=== PATIENT | female | born 1965 | race Caucasian/White ===

== ENCOUNTER 2016-06-25 14:39 | Emergency (ER) | payer OTHER ==
[~2016-06-25] VITALS: Wt 69.0 kg
[~2016-06-25 14:39] MED LIST: CEPH-443 PO; DOCU-144 PO; HYDR-902 PO; HYDR30CR75 PR; IBUP-1542 PO; LEVO100T87 PO; OMEP20CA16 PO; POLY17PO6 PO
--- NOTE | 2016-06-25 15:51 | ERD ---
ER Documentation Chief Complaint Date/Time DATE: 06/25/16 TIME: 15:47 Chief Complaint DYSURIA SINCE LAST NIGHT AND FREQUENCY. NO HEMATURIA HPI This is a 51-year-old female who presents to the emergency department today complaining of frequent urination and burning with urination for the last 2 days. Patient that she feels like she has some pressure and she also had some itching in her vagina. States that she saw her doctor a week ago and was told that she'll need wait for weeks for ultrasound. Denies any vaginal bleeding. Denies any fevers or chills. ROS All systems reviewed and are negative except as per history of present illness. Medications Home Meds Active Scripts Clotrimazole* (Clotrimazole* AF) 1% - 30 Gm Cream.gm., 1 APPLIC TOP BID for 7 Days, #1 TUB Prov:CYDNEY HAAS PA-C 06/25/16 Phenazopyridine Hcl* (Pyridium*) 200 Mg Tab, 200 MG PO TID Y for URINARY PAIN, # 6 TAB Prov:CYDNEY HAAS PA-C 06/25/16 Docusate Sodium* (Colace*) 100 Mg Capsule, 100 MG PO TID, #30 CAP Prov:LIANG PADILLA 02/26/16 Polyethylene Glycol* (Miralax*) 17 Gm Powd.pack, 17 GM PO DAILY, #10 Prov:MILES BENITEZ DO 02/24/16 Hydrocortisone Acetate* (Anusol-HC*) 30 Gm Cream.gm., 1 APPLIC MS TID, #1 TUB Prov:LIANG PADILLA 02/23/16 Ibuprofen* (Motrin*) 600 Mg Tab, 600 MG PO Q6H Y for PAIN AND OR ELEVATED TEMP, #20 TAB Prov:LIANG PADILLA 02/23/16 Cephalexin* (Keflex*) 500 Mg Capsule, 500 MG PO QID for 10 Days, CAP Prov:LIANG PADILLA 02/23/16 Reported Medications Hydrocodone/Acetaminophen ([place] 10-325 Tablet) 1 Each Tablet, 1 EACH PO Q4 Y for PAIN, TAB 02/23/16 Levothyroxine Sodium* (Levothyroxine Sodium*) 100 Mcg Tablet, 100 MCG PO BEFORE BREAKFAST, #30 TAB 05/27/15 Omeprazole* (Omeprazole*) 20 Mg Capsule.dr, 20 MG PO DAILY, CAP 08/07/14 Allergies Allergies: Coded Allergies: No Known Allergy (Unverified , 02/24/16) PMhx/Soc History of Surgery: Yes (HEMORRHOIDECTOMY) Anesthesia Reaction: No Hx Neurological Disorder: No Hx Respiratory Disorders: No Hx Cardiac Disorders: No Hx Psychiatric Problems: No Hx Miscellaneous Medical Probl: No Hx Alcohol Use: No Hx Substance Use: No Hx Tobacco Use: No Physical Exam Vitals Vital Signs Date Time Temp Pulse Resp B/P Pulse Ox O2 Delivery O2 Flow Rate FiO2 06/25/16 14:44 99.2 84 20 139/67 99 Physical Exam Const: No acute distress Head: Atraumatic Eyes: Normal Conjunctiva ENT: Normal External Ears, Nose and Mouth. Neck: Full range of motion..~ No meningismus. Resp: Clear to auscultation bilaterally Cardio: Regular rate and rhythm, no murmurs Abd: Soft, suprapubic tenderness non distended. Normal bowel sounds. No right lower quadrant pain. No left lower quadrant pain. Skin: No petechiae or rashes Back: No midline or flank tenderness Neur: Awake and alert Psych: Normal Mood and Affect Results 24 hrs Laboratory Tests Test 06/25/16 16:08 06/25/16 16:58 Bedside Urine Blood Trace-intact Bedside Urine Glucose (UA) Negative Bedside Urine Ketones (LAB) Negative Bedside Urine Leukocyte Esterase (L Negative Bedside Urine Nitrite (LAB) Negative Bedside Urine Protein (LAB) Negative Bedside Urine pH (LAB) 6.0 Bedside Glucose 97mg/dL Procedures/MDM 31-year-old female who presents to the emergency department a complaint of frequent urination, dysuria and suprapubic pressure for the past 2 days. I obtained a UA UA is negative for infection. The patient complained of frequency of urination I did obtain an Accu-Chek. Accu -Chek showed 97. There is no evidence of diabetes at this time Patient's symptoms at this time consistent with dysuria. Patient was given Pyridium for the dysuria She was also complaining of vaginal itching and therefore I did do an external vaginal exam showed some mild yeast on the labia minora I will give her a prescription for Chlortrimazole cream. Patient had right lower quadrant pain in the left lower quadrant pain on physical exam she denied vaginal bleeding I do not feel the patient requires laboratory workup or imaging at this time. Low suspicion for acute surgical abdomen, ovarian torsion, tubo-ovarian abscess. She is afebrile and otherwise well-appearing. She has no flank pain. Low suspicion for pyelonephritis or nephrolithiasis. I'll give the patient a list of [employer] referral to follow up as she may have bladder prolapse at this time. Extremities to the patient. At this time the patient is stable for discharge and outpatient management. Patient should follow up with their PCP in the next 1-2 days. They may return to the emergency department sooner for any persistent or worsening of symptoms. Patient understood and agreed with the plan. Departure Diagnosis: Primary Impression: Dysuria Additional Impression: Yeast infection Condition: Fair CYDNEY HAAS PA-C Jun 25, 2016 15:51
[2016-06-25 16:06] LABS: URINE BLOOD (Dip) POC Trace-intact (NEGATIVE)
[2016-06-25] MEDS ORDERED: PHEN-538 PO (17:44)
[2016-06-25] MEDS ORDERED: CLOT30CR24 TOP (17:45)
[2016-06-25 17:55] VITALS: BP 128/65; PULSE 54; RESP 18; TEMP 98.4
== END 2016-06-25 17:56 | disposition home or self-care (01) ==
LOC: FTE 14:39
DX: R30.0 Dysuria (principal); B37.3 Candidiasis of vulva and vagina
CPT/HCPCS: 81003; 82962; 99283

== ENCOUNTER 2016-07-21 14:30 | Emergency (ER) | payer OTHER ==
[~2016-07-21] VITALS: Ht 160 cm; Wt 89.0 kg
[~2016-07-21 14:30] MED LIST changes: +CLOT30CR24 TOP; +PHEN-538 PO
[2016-07-21 14:35] VITALS: Ht 160 cm; Wt 89.0 kg
[2016-07-21] MEDS ORDERED: IBUP800T25 PO (19:33)
[2016-07-21] MEDS ORDERED: morphine 4 MG/ML VIAL IV STA (19:54)
[2016-07-21 20:14] LABS: ADD SCAN DIFF NO
[2016-07-21 20:18] LABS: BASOPHIL # 0.1 10^3/ul (0.0-0.1); BASOPHILS % 0.7 % (0.0-2.0); EOSINOPHILS # 0.2 10^3/ul (0.0-0.5); EOSINOPHILS % 3.2 % (0.0-7.0); HEMATOCRIT 42.1 % (37.0-47.0); HEMOGLOBIN 13.9 g/dl (12.0-16.0); LYMPHOCYTES # 3.3 10^3/ul (0.8-2.9); MEAN CORPUSCULAR HEMOGLOBIN 30.8 pg (29.0-33.0); MEAN CORPUSCULAR VOLUME 93.3 fl (82.0-101.0); MEAN PLATELET VOLUME 9.3 fl (7.4-10.4); MONOCYTE # 0.6 10^3/ul (0.3-0.9); MONOCYTES % 9.2 % (0.0-11.0); NEUTROPHIL # 2.6 10^3/ul (1.6-7.5); NEUTROPHILS % 38.6 % (39.0-77.0); PLATELET COUNT 373 10^3/UL (140-415); RED BLOOD COUNT 4.51 10^6/ul (4.20-5.40); RED CELL DISTRIBUTION WIDTH 12.5 % (11.5-14.5); WHITE BLOOD COUNT 6.8 10^3/ul (4.8-10.8)
[2016-07-21 20:22] LABS: ADD UMIC YES; URINE BILIRUBIN (Dip) NEGATIVE (NEGATIVE); URINE BLOOD (Dip) TRACE (NEGATIVE); URINE COLOR LT. YELLOW (YELLOW); URINE GLUCOSE (Dip) NEGATIVE (NEGATIVE); URINE KETONES (Dip) NEGATIVE (NEGATIVE); URINE LEUKOCYTE ESTERASE (Dip) 2+ (NEGATIVE); URINE NITRITE (Dip) NEGATIVE (NEGATIVE); URINE TOTAL PROTEIN (Dip) NEGATIVE (NEGATIVE); URINE UROBILINOGEN (Dip) 0.2 E.U./dL (0.1-1.0)
[2016-07-21] MEDS ORDERED: SOD CHLORIDE 0.9% 100 ML ONE (20:29)
[2016-07-21] MEDS ORDERED: IOHEXOL 300MG/ML 150 ML BTL ONE (20:29)
[2016-07-21 20:35] LABS: ALBUMIN 4.9 g/dl (3.3-4.9); POTASSIUM 3.8 mmol/L (3.5-5.1)
[2016-07-21 20:38] LABS: ALBUMIN/GLOBULIN RATIO 1.4; BILIRUBIN,INDIRECT 0.1 mg/dl (0-1.1); BILIRUBIN,TOTAL 0.1 mg/dl (0.2-1.3); CALCIUM 9.8 mg/dl (8.4-10.2); CREATININE 0.62 mg/dl (0.44-1.00); TOTAL PROTEIN 8.4 g/dl (6.1-8.1)
[2016-07-21 20:42] LABS: URINE RBCS 0-2 /HPF (0)
[2016-07-21 20:43] LABS: BACTERIA,URINE FEW; SQUAMOUS EPITHELIAL CELL,UR FEW
--- NOTE | 2016-07-21 22:39 | RADRPT ---
PROCEDURE: CT ABDOMEN/PELVIS WITH CONTRAST CLINICAL INDICATION: 51-year-old female with right lower quadrant pain. TECHNIQUE: The study was performed utilizing a GE [id number] VCT 64-slice CT scanner. Direct axia l sections were obtained through the abdomen and pelvis with the use of 90 cc of opaque 300 nonionic intravenous contrast material. Sagittal and coronal reformations were obtained. Automated exposure control and iterative reconstruction techniques were utilized for this examination. The images were reviewed on a PACS workstation. CTD/vol = 7.2 mGy; Total Exam DLP = 422 point a mGy-cm. COMPARISON: CT abdomen/pelvis November 06, 2015. FINDINGS: There is minimal bibasilar subsegmental atelectasis. There is no evidence for significant pleural e ffusion. The liver has a normal size and contour without focal areas of abnormal density or contras t enhancement. There is minimal intrahepatic ductal dilatation. Surgical clips are seen within the g allbladder fossa. There is a persistent cystic focus within the gallbladder fossa measuring approxi mately 3.5 x 2.9 x 2.5 cm as previously visualized without interval change. The distal common bile d uct measures approximately 6.8 mm. The pancreas is without areas of abnormal attenuation or contrast enhancement. This spleen is identified and has a normal size without abnormal density or contrast enhancement. The adrenal glands are unremarkable. The kidneys are functional bilaterally without abn ormal density. No hydroureteronephrosis nor nephroureterolithiasis is evident. The urinary bladder c ontains urine. There is mild retained stool within the ascending colon without obstruction. The appendix is again not visualized however there is no periappendiceal inflammatory changes. Multiple diverticula seen within the sigmoid colon region without surrounding inflammatory changes. The erika macario is not visualized consistent with prior hysterectomy. There is no significant free fluid. The a ortoiliac vessels are without aneurysmal dilatation. The osseous structures are intact. IMPRESSION: 1. Evidence for prior gallbladder surgery with persistent cystic focus within the gallbladder fossa without significant interval change with minimal intrahepatic and mild common bile duct dilatation. This may represent a retained gallbladder, choledochal cyst, dilated cystic duct remnant, postope rative seroma/biloma. Clinical correlation is necessary. 2. Sigmoid diverticulosis. 3. Mild retained stool within the ascending colon without obstruction. 4. Probable prior appendectomy. 5. Status post hysterectomy. .Chad Perry MD, MD Date Time Electronically viewed and signed by .Chad Perry MD, MD on 07/21/2016 22:39 .Kiley/
[2016-07-21] MEDS ORDERED: MAGN400O4 PO (22:50)
[2016-07-21] MEDS ORDERED: POLY17PO6 PO (22:50)
[2016-07-21] MEDS ORDERED: ONDANSETRON (ODT) 4 MG TAB ODT STA (22:55)
[2016-07-21 23:02] VITALS: BP 124/72; PULSE 68; RESP 17; TEMP 98.3
--- NOTE | 2016-07-21 23:05 | ERD ---
ER Documentation Chief Complaint Date/Time DATE: 07/21/16 TIME: 23:00 Chief Complaint ap x 1 week HPI 51-year-old female with a history of hysterectomy and left oophorectomy presenting with progressively worsening abdominal pain for 1 week. The pain is in the right lower quadrant. It was initially intermittent but for the past 3 days it has been constant. She describes it as an aching pain, radiating across her lower abdomen. She denies any associated fever, nausea, vomiting, diarrhea, dysuria, hematuria or constipation. No hematochezia or melena. She saw her primary care physician a few days ago and had a pelvic exam which was normal, a pelvic ultrasound which was normal, and urinalysis and blood work which were normal. ROS All systems reviewed and are negative except as per history of present illness. Medications Home Meds Active Scripts Polyethylene Glycol* (Miralax*) 17 Gm Powd.pack, 17 GM PO DAILY, #30 PACKET Prov:DAVID JAY MD 07/21/16 Magnesium Hydroxide* (Milk Of Magnesia*) 400 Mg/5 Ml Oral.susp, 30 ML PO Q12H for CONSTIPATION for 3 Days, #120 ML Prov:DAVID JAY MD 07/21/16 Reported Medications Ibuprofen* (Ibuprofen*) 800 Mg Tablet, 800 MG PO DAILY Y for PAIN, TAB 07/21/16 Discontinued Reported Medications Hydrocodone/Acetaminophen ([place] 10-325 Tablet) 1 Each Tablet, 1 EACH PO Q4 Y for PAIN, TAB 02/23/16 Levothyroxine Sodium* (Levothyroxine Sodium*) 100 Mcg Tablet, 100 MCG PO BEFORE BREAKFAST, #30 TAB 05/27/15 Omeprazole* (Omeprazole*) 20 Mg Capsule.dr, 20 MG PO DAILY, CAP 08/07/14 Discontinued Scripts Clotrimazole* (Clotrimazole* AF) 1% - 30 Gm Cream.gm., 1 APPLIC TOP BID for 7 Days, #1 TUB Prov:CYDNEY HAAS PA-C 06/25/16 Phenazopyridine Hcl* (Pyridium*) 200 Mg Tab, 200 MG PO TID Y for URINARY PAIN, # 6 TAB Prov:CYDNEY HAAS PA-C 06/25/16 Docusate Sodium* (Colace*) 100 Mg Capsule, 100 MG PO TID, #30 CAP Prov:LIANG PADILLA 02/26/16 Polyethylene Glycol* (Miralax*) 17 Gm Powd.pack, 17 GM PO DAILY, #10 Prov:MILES BENITEZ DO 02/24/16 Hydrocortisone Acetate* (Anusol-HC*) 30 Gm Cream.gm., 1 APPLIC VA TID, #1 TUB Prov:LIANG PADILLA 02/23/16 Ibuprofen* (Motrin*) 600 Mg Tab, 600 MG PO Q6H Y for PAIN AND OR ELEVATED TEMP, #20 TAB Prov:LIANG PADILLA 02/23/16 Cephalexin* (Keflex*) 500 Mg Capsule, 500 MG PO QID for 10 Days, CAP Prov:LIANG PADILLA 02/23/16 Allergies Allergies: Coded Allergies: No Known Allergy (Unverified , 07/21/16) PMhx/Soc History of Surgery: Yes (HEMORRHOIDECTOMY, hysterectomy.) Anesthesia Reaction: No Hx Neurological Disorder: No Hx Respiratory Disorders: No Hx Cardiac Disorders: No Hx Psychiatric Problems: No Hx Miscellaneous Medical Probl: No Hx Alcohol Use: No Hx Substance Use: No Hx Tobacco Use: No Smoking Status: Never smoker FmHx Family History: No diabetes Physical Exam Vitals Vital Signs Date Time Temp Pulse Resp B/P Pulse Ox O2 Delivery O2 Flow Rate FiO2 07/21/16 22:12 98.3 66 17 136/68 99 07/21/16 20:13 98.3 76 17 128/72 99 07/21/16 14:35 98.1 62 19 132/62 99 Physical Exam Const: No distress, well-appearing, nontoxic Head: Atraumatic Eyes: Normal Conjunctiva ENT: Normal External Ears, Nose and Mouth. Neck: Full range of motion. No meningismus. Resp: Clear to auscultation bilaterally Cardio: Regular rate and rhythm, no murmurs Abd: Soft, mild right lower quadrant tenderness to deep palpation, no rebound or guarding, no masses, non distended. Normal bowel sounds Skin: No petechiae or rashes Back: No midline or flank tenderness Ext: No cyanosis, or edema Neur: Awake and alert Psych: Normal Mood and Affect Result Diagram: 07/21/16200107/21/162001 Results 24 hrs Laboratory Tests Test 07/21/16 20:02 Alanine Aminotransferase (ALT/SGPT) 34IU/L Albumin 4.9g/dl Albumin/Globulin Ratio 1.40 Alkaline Phosphatase 96IU/L Anion Gap 19 Aspartate Amino Transf (AST/SGOT) 20IU/L Basophils # 0.110^3/ul Basophils % 0.7% Blood Urea Nitrogen 14mg/dl Calcium Level 9.8mg/dl Carbon Dioxide Level 29mmol/L Chloride Level 100mmol/L Creatinine 0.62mg/dl Direct Bilirubin 0.00mg/dl Eosinophils # 0.210^3/ul Eosinophils % 3.2% Globulin 3.50g/dl Glucose Level 92mg/dl Hematocrit 42.1% Hemoglobin 13.9g/dl Indirect Bilirubin 0.1mg/dl Lymphocytes # 3.310^3/ul Lymphocytes % 48.0% Mean Corpuscular Hemoglobin 30.8pg Mean Corpuscular Hemoglobin Concent 33.0g/dl Mean Corpuscular Volume 93.3fl Mean Platelet Volume 9.3fl Monocytes # 0.610^3/ul Monocytes % 9.2% Neutrophils # 2.610^3/ul Neutrophils % 38.6% Nucleated Red Blood Cells # 0.010^3/ul Nucleated Red Blood Cells % 0.0/100WBC Platelet Count 55352^3/UL Potassium Level 3.8mmol/L Red Blood Count 4.5110^6/ul Red Cell Distribution Width 12.5% Sodium Level 144mmol/L Total Bilirubin 0.1mg/dl Total Protein 8.4g/dl Urine Bacteria FEW Urine Bilirubin NEGATIVE Urine Clarity SL HAZY Urine Color LT. YELLOW Urine Glucose NEGATIVE% Urine Hemoglobin TRACE Urine Ketones NEGATIVE Urine Leukocyte Esterase 2+ Urine Microscopic RBC 0-2/HPF Urine Microscopic WBC 5-10/HPF Urine Nitrite NEGATIVE Urine Specific Gilbert >=1.030 Urine Squamous Epithelial Cells FEW Urine Total Protein NEGATIVE Urine Urobilinogen 0.2 E.U./dL Urine pH 6.0 White Blood Count 6.810^3/ul Current Medications Medications (Trade) Dose Ordered Sig/Stacie Route PRN Reason Start Time Stop Time Status Last Admin Dose Admin Morphine Sulfate (morphine) 4 mg ONCE STAT IV 07/21/16 19:54 07/21/16 19:56 DC 07/21/16 21:29 IV Flush 10 ml 10 ml STK-MED ONCE .ROUTE 07/21/16 20:29 07/21/16 20:30 DC 07/21/16 21:15 Sodium Chloride (NS) 100 ml @ ud STK-MED ONCE .ROUTE 07/21/16 20:29 07/21/16 20:30 DC 07/21/16 21:17 Iohexol (Omnipaque 300mg/ ml) 150 ml STK-MED ONCE .ROUTE 07/21/16 20:29 07/21/16 20:30 DC 07/21/16 21:17 Ondansetron HCl (Zofran Odt) 8 mg ONCE STAT ODT 07/21/16 22:55 07/21/16 22:56 DC Procedures/MDM Patient is presenting with lower abdominal pain, mostly in the right lower quadrant. Her vitals are stable and she is afebrile. I have a low suspicion for acute abdomen. Differential includes but is not limited to appendicitis, colitis, cystitis, ureterolithiasis, diverticulitis, abdominal aortic dissection , bowel obstruction, fecal impaction, ovarian cyst. Bloodwork, UA ordered to evaluate for above and were unremarkable other than some leukocytes on her urinalysis, however the patient is asymptomatic. CT of the abdomen and pelvis was done with IV contrast to evaluate for ureterolithiasis versus right-sided diverticulitis versus other acute pathology. The CT did not show any acute abnormalities other than a moderate amount of retained stool in the right colon. I suspect that this is the source of the patient's pain. I discussed with the patient the treatment of constipation and will prescribe her milk of magnesia and MiraLAX. She was advised to follow-up with her doctor in the next 2-3 days. Return precautions were given. She was discharged in stable condition. Departure Diagnosis: Primary Impression: Right lower quadrant abdominal pain Additional Impression: Constipation Constipation type: unspecified constipation type Qualified Code: K59.00 - Constipation, unspecified constipation type Condition: Stable Patient Instructions: Abdominal Pain, Constipation (Adult) DAVID JAY MD Jul 21, 2016 23:05
== END 2016-07-21 23:03 | disposition home or self-care (01) ==
LOC: E/R 14:30
DX: R10.31 Right lower quadrant pain (principal); K59.00 Constipation, unspecified
CPT/HCPCS: 36415; 74177; 80053; 81001; 81003; 85025; 87086; 96374; 99285; J2270; Q9967

== ENCOUNTER 2016-09-26 17:05 | Emergency (ER) | payer SELFPAY ==
[~2016-09-26] VITALS: Ht 157.5 cm; Wt 72.0 kg
[~2016-09-26 17:05] MED LIST changes: -CEPH-443 PO; -CLOT30CR24 TOP; -DOCU-144 PO; -HYDR-902 PO; -HYDR30CR75 PR; -IBUP-1542 PO; +IBUP800T25 PO; -LEVO100T87 PO; +MAGN400O4 PO; -OMEP20CA16 PO; -PHEN-538 PO
[2016-09-26 17:14] VITALS: Ht 157.5 cm; Wt 72.0 kg
[2016-09-26] MEDS ORDERED: ONDANSETRON 4 MG TAB PO ONE (18:00)
[2016-09-26] MEDS ORDERED: HYDROCODONE/APAP (5/325) TAB PO ONE (18:00)
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
--- NOTE | 2016-09-26 18:25 | RADRPT ---
PROCEDURE: Noncontrast CT Head. CLINICAL INDICATION: Trauma. TECHNIQUE: Noncontrast CT of the head was obtained. The administered radiation dose was CTDI vol = 44.52 mGy, DLP = 630.20 mGy-cm. One or more of the following dose reduction techniques were used: Au tomated exposure control, Adjustment of the mA and/or kV according to patient size, or Use of iterat eleanor reconstruction technique. COMPARISON: Noncontrast CT of the head from May 27, 2015. FINDINGS: The ventricles and sulci are within normal limits. There is no loss of brown-white differentiation to suggest acute territorial infarction. There is no acute intracranial hemorrhage or extra-axial fluid collection. There is no mass effect. No midline shift is identified. The orbits are within normal limits. The paranasal sinuses are well aerated. No destructive osseous lesion is identified. IMPRESSION: No significant change. No acute intracranial hemorrhage or extra-axial fluid collection. Further findings as detailed above. RPTAT: PP .Dragan Valentin MD, Date Time Electronically viewed and signed by .Dragan Valentin MD, on 09/26/2016 18:24 .F/
--- NOTE | 2016-09-26 18:32 | RADRPT ---
PROCEDURE: CT Cervical Spine without contrast. CLINICAL INDICATION: Trauma. TECHNIQUE: Noncontrast CT of the cervical spine was performed with axial images. Coronal and sagitta l images were also performed. The administered radiation dose was CTDI vol = 22.13 mGy, DLP = 410.5 7 mGy-cm. One or more of the following dose reduction techniques were used: Automated exposure contr ol, Adjustment of the mA and/or kV according to patient size, or Use of iterative reconstruction luis hnique. COMPARISON: There are no similar studies submitted for comparison. FINDINGS: There is straightening of the normal cervical lordosis. The vertebral body heights are maintained. There is normal alignment. There is no destructive osseous lesion. There is a 6 mm sclerotic lesion within the T1 spinous proce ss which is indeterminate but may represent a bone island versus other sclerotic lesion. No acute fracture is identified. C2-C3 : There is a 1 mm circumferential disk osteophyte complex without spinal canal or bilateral fo raminal stenosis. C3-C4 : There is mild disk space narrowing. There is a 2 mm circumferential disk osteophyte complex with mild spinal canal stenosis. There is mild bilateral facet arthropathy without bilateral diana inal stenosis. C4-C5 : There is a 2 mm circumferential disk osteophyte complex the with mild to moderate spinal can al stenosis. There is no bilateral foraminal stenosis. C5-C6 : There is a 1 mm circumferential disk osteophyte complex contacting the spinal cord with mild spinal canal stenosis. There is no bilateral foraminal stenosis. C6-C7 : There is a 1 mm circumferential disk osteophyte complex without spinal canal or bilateral fo raminal stenosis. C7-T1 : There is no disc herniation, spinal canal, or foraminal stenosis. There is moderate left fac et arthropathy. IMPRESSION: 1. No acute fracture or subluxation. 2. Straightening of the normal cervical lordosis. 3. Multilevel degenerative changes most pronounced at C4-C5 where there is a circumferential disk os teophyte complex with mild to moderate spinal canal stenosis. 4. No bilateral foraminal stenosis. 5. Indeterminate 6 mm sclerotic lesion within the T1 spinous process which may represent a bone isl and versus other sclerotic lesion. Further findings as detailed above. RPTAT: PP .Dragan Valentin MD, MD Date Time Electronically viewed and signed by .Dragan Valentin MD, MD on 09/26/2016 18:31 .F/
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
--- NOTE | 2016-09-26 18:54 | RADRPT ---
PROCEDURE: XR Chest. CLINICAL INDICATION: Trauma. TECHNIQUE: Single frontal view of the chest was obtained COMPARISON: Single frontal view of the chest dated 05/27/2015. FINDINGS: The heart and mediastinum are within normal limits. The lungs are clear. There is no pleural effusion or pneumothorax. IMPRESSION: No evident acute thoracic injury. RPTAT: [facility] Physician Maximilian Date Time Electronically viewed and signed by Physician Maximilian on 09/26/2016 18:54 RS/
[2016-09-26] MEDS ORDERED: IBUP-1542 PO (19:27)
[2016-09-26] MEDS ORDERED: CYCL-319 PO (19:27)
[2016-09-26 19:56] VITALS: BP 143/65; PULSE 59; RESP 18; TEMP 98
== END 2016-09-26 19:57 | disposition home or self-care (01) ==
LOC: FTE 17:05
DX: S16.1XXA Strain of muscle, fascia and tendon at neck level, initial encounter (principal); G44.319 Acute post-traumatic headache, not intractable; V49.40XA Driver injured in collision with unspecified motor vehicles in traffic accident, initial encounter
CPT/HCPCS: 70140; 70450; 71010; 72125

== ENCOUNTER 2018-08-18 10:58 | Emergency (ER) | payer OTHER ==
[~2018-08-18] VITALS: Ht 165.1 cm; Wt 70.9 kg
[~2018-08-18 10:58] MED LIST changes: +CYCL10TA7 PO; +IBUP-1542 PO; +IBUP-1544 PO; -IBUP800T25 PO; +MAGN400O19 PO; -MAGN400O4 PO
[2018-08-18 11:10] VITALS: Ht 165.1 cm; Wt 70.9 kg
[2018-08-18] MEDS ORDERED: MONT10TA24 PO (13:30)
--- NOTE | 2018-08-18 14:10 | ERD ---
ER Documentation Chief Complaint Chief Complaint c/o Generalized weakness "tired", started yesterday, after "allergy test" HPI This is a 53-year-old female who is here for 2 days of generalized weakness and malaise. She said for the past 2 days she is felt very sleepy and tired and has no energy. She says that she has no headache neck pain chest pain or shortness of breath or cough. No abdominal pain no nausea vomiting diarrhea, no fever or dysuria. Denies any hypothyroid symptoms in the past. Denies any myalgias or arthralgias. Her only complaint is that she is tired ROS All systems reviewed and are negative except as per history of present illness. Medications Home Meds Reported Medications Montelukast Sodium* (Montelukast Sodium*) 10 Mg Tablet, 10 MG PO QHS, #30 TAB 08/18/18 Discontinued Reported Medications Ibuprofen* (Ibuprofen*) 800 Mg Tablet, 800 MG PO DAILY PRN for PAIN, TAB 07/21/16 Discontinued Scripts Ibuprofen* (Motrin*) 600 Mg Tab, 600 MG PO Q8 for PAIN, #24 TAB Prov:CROW DIAZ MD 09/26/16 Cyclobenzaprine Hcl* (Cyclobenzaprine Hcl*) 10 Mg Tablet, 10 MG PO TID, #15 TAB Prov:CROW DIAZ MD 09/26/16 Polyethylene Glycol* (Miralax*) 17 Gm Powd.pack, 17 GM PO DAILY, #30 PACKET Prov:DAVID JAY MD 07/21/16 Magnesium Hydroxide* (Milk Of Magnesia*) 400 Mg/5 Ml Oral.susp, 30 ML PO Q12H for CONSTIPATION for 3 Days, #120 ML Prov:DAVID JAY MD 07/21/16 Allergies Allergies: Coded Allergies: No Known Allergy (Unverified , 08/18/18) PMhx/Soc History of Surgery: Yes (HEMORRHOIDECTOMY, hysterectomy.) Anesthesia Reaction: No Hx Neurological Disorder: No Hx Respiratory Disorders: No Hx Cardiac Disorders: No Hx Psychiatric Problems: No Hx Miscellaneous Medical Probl: No Hx Alcohol Use: Yes (social) Hx Substance Use: No Hx Tobacco Use: No Smoking Status: Never smoker FmHx Family History: No coronary disease Physical Exam Vitals Vital Signs Date Temp Pulse Resp B/P (MAP) Pulse Ox O2 O2 Flow FiO2 Time Delivery Rate 08/18/18 98.3 80 20 135/79 97 11:10 (97) Physical Exam Const: Well-developed, well-nourished Head: Atraumatic, normocephalic Eyes: Normal Conjunctiva, PERRLA, EOMI, normal sclera, no nystagmus ENT: Normal External Ears, Nose and Mouth, moist mucus membranes. Neck: Full range of motion. No meningismus, no lymphadenopathy. Resp: Clear to auscultation bilaterally, no wheezing, rhonchi, rales, mild left anterior chest wall pain at the left costosternal margin Cardio: Regular rate and rhythm, no murmurs, S1 S2 present Abd: Soft, non tender x 4, non distended. Normal bowel sounds, no guarding or rebound, no pulsitile abdominal masses or bruits Skin: No petechiae or rashes, no ecchymosis , no maculopapular rash Back: No midline or flank tenderness Ext: No cyanosis, or edema, FROM x 4, normal inspection, neurovascularly intact x 4 Neur: Awake and alert, STR 5/5 x 4, sensation intact x 4, no focal findings, cerebellum intact Psych: Normal Mood and Affect Result Diagram: 08/18/18 1235 08/18/18 1235 Results 24 hrs Laboratory Tests Test 08/18/18 12:35 08/18/18 13:03 White Blood Count 5.0 10^3/ul Red Blood Count 4.13 10^6/ul Hemoglobin 12.9 g/dl Hematocrit 37.8 % Mean Corpuscular Volume 91.5 fl Mean Corpuscular Hemoglobin 31.2 pg Mean Corpuscular Hemoglobin Concent 34.1 g/dl Red Cell Distribution Width 12.4 % Platelet Count 344 10^3/UL Mean Platelet Volume 9.1 fl Immature Granulocytes % 0.800 % Neutrophils % 42.0 % Lymphocytes % 43.3 % Monocytes % 10.7 % Eosinophils % 2.2 % Basophils % 1.0 % Nucleated Red Blood Cells % 0.0 /100WBC Immature Granulocytes # 0.040 10^3/ul Neutrophils # 2.1 10^3/ul Lymphocytes # 2.2 10^3/ul Monocytes # 0.5 10^3/ul Eosinophils # 0.1 10^3/ul Basophils # 0.1 10^3/ul Nucleated Red Blood Cells # 0.0 10^3/ul Sodium Level 142 mmol/L Potassium Level 4.0 mmol/L Chloride Level 104 mmol/L Carbon Dioxide Level 28 mmol/L Anion Gap 10 Blood Urea Nitrogen 13 mg/dl Creatinine 0.59 mg/dl Est Glomerular Filtrat Rate mL/min > 60 mL/min Glucose Level 108 mg/dl Calcium Level 9.9 mg/dl Total Bilirubin 0.3 mg/dl Direct Bilirubin 0.00 mg/dl Indirect Bilirubin 0.3 mg/dl Aspartate Amino Transf (AST/SGOT) 22 IU/L Alanine Aminotransferase (ALT/SGPT) 35 IU/L Alkaline Phosphatase 79 IU/L Troponin I < 0.012 ng/ml Total Protein 7.5 g/dl Albumin 4.5 g/dl Globulin 3.00 g/dl Albumin/Globulin Ratio 1.50 Lipase 122 U/L Thyroid Stimulating Hormone (TSH) 2.260 MIU/L Free Thyroxine 0.93 ng/dl Urine Color COLORLESS Urine Clarity CLEAR Urine pH 8.0 Urine Specific [place] 1.004 Urine Ketones NEGATIVE mg/dL Urine Nitrite NEGATIVE mg/dL Urine Bilirubin NEGATIVE mg/dL Urine Urobilinogen NEGATIVE mg/dL Urine Leukocyte Esterase NEGATIVE Shameka/ul Urine Hemoglobin NEGATIVE mg/dL Urine Glucose NEGATIVE mg/dL Urine Total Protein NEGATIVE mg/dl Procedures/MDM Ordering MD: RAF HAMMER DO Location: E/R Room/Bed: PROCEDURE: XR Chest. CLINICAL INDICATION: Abdominal pain TECHNIQUE: Frontal chest x-ray was obtained. COMPARISON: Chest x-ray September 26, 2016 FINDINGS: The heart is not enlarged. Mediastinum is not widened. No hilar masses seen. Maritza ngs are clear of any infiltrates. There is no effusion or pneumothorax. The osseous structures appear normal. IMPRESSION: No evidence for active cardiopulmonary disease. .Chay Amaya MD, MD Date Time Electronically viewed and signed by .Chay Amaya MD, MD on 08/18/2018 13:18 .A/ CC: RAF HAMMER DO [id number] Patient's labs are all normal as is the x-ray. Thyroid is not sluggish or slow. We will have the patient observe herself at home and do some bed rest she may just have some viral illness or may just be over exhausted and needs to rest and sleep. Watch for any new symptoms to return Departure Diagnosis: Primary Impression: Generalized weakness Condition: Stable MILES BENITEZ DO Aug 18, 2018 14:10
[2018-08-18 16:26] VITALS: BP 106/63; PULSE 63; RESP 20
== END 2018-08-18 16:27 | disposition home or self-care (01) ==
LOC: E/R 10:58
DX: R53.1 Weakness (principal)
CPT/HCPCS: 36415; 71045; 80053; 81003; 83690; 84439; 84443; 84484; 85025; Z7502

== ENCOUNTER 2018-10-01 23:12 | Emergency (ER) | payer OTHER ==
[~2018-10-01] VITALS: Ht 157.5 cm; Wt 70.6 kg
[~2018-10-01 23:12] MED LIST changes: -CYCL10TA7 PO; -IBUP-1542 PO; -IBUP-1544 PO; -MAGN400O19 PO; +MONT10TA24 PO; -POLY17PO6 PO
[2018-10-01 23:16] VITALS: Ht 157.5 cm; Wt 70.6 kg
[2018-10-02] MEDS ORDERED: KETOROLAC 15 MG INJ IM STA (01:57)
[2018-10-02] MEDS ORDERED: ONDANSETRON (ODT) 4 MG TAB ODT STA (02:22)
[2018-10-02] MEDS ORDERED: D-ME473S2 PO (02:56)
[2018-10-02 03:11] VITALS: BP 130/62; PULSE 52; RESP 18
--- NOTE | 2018-10-02 07:59 | ERD ---
ER Documentation Chief Complaint Chief Complaint ST WITH COUGH AND BACK PAIN DUE TO COUGH X5DAYS HPI This is a 53-year-old female who presents to the ED complaining of dry cough, sore throat and mid upper back pain x5 days. Patient states she only has her back pain when coughing. She states she has been coughing, worse at nighttime. She was seen by her PCP who prescribed her albuterol, cetirizine, and other allergy medications. Patient presents today for worsening sore throat pain and back pain. She denies any shortness of breath or chest pain. Denies any fevers or chills. Denies any nausea vomiting. No other complaints. She is a non- smoker and has no pertinent medical history. ROS All systems reviewed and are negative except as per history of present illness. Medications Home Meds Active Scripts Dextromethorphan Hb-Promethazine Hcl* (Promethazine DM* Syrup) 473 Ml Syrup, 5 ML PO Q6 PRN for COUGH for 7 Days, ML Prov:KADY VAZQUEZ PA-C 10/02/18 Reported Medications Montelukast Sodium* (Montelukast Sodium*) 10 Mg Tablet, 10 MG PO QHS, #30 TAB 08/18/18 Allergies Allergies: Coded Allergies: No Known Allergy (Unverified , 08/18/18) PMhx/Soc History of Surgery: Yes (HEMORRHOIDECTOMY, hysterectomy.) Anesthesia Reaction: No Hx Neurological Disorder: No Hx Respiratory Disorders: No Hx Cardiac Disorders: No Hx Psychiatric Problems: No Hx Miscellaneous Medical Probl: No Hx Alcohol Use: Yes (social) Hx Substance Use: No Hx Tobacco Use: No Smoking Status: Never smoker Physical Exam Vitals Vital Signs Date Temp Pulse Resp B/P (MAP) Pulse Ox O2 O2 Flow FiO2 Time Delivery Rate 10/02/18 97.9 52 18 130/62 99 Room Air 03:11 (84) 10/01/18 97.3 65 19 131/67 97 23:16 (88) Physical Exam Const: No acute distress Head: Atraumatic Eyes: Normal Conjunctiva. EOMI. PERRLA. ENT: Normal External Ears, Nose and Mouth. + Postnasal drip. Mild posterior OP erythema. No tonsillar edema or exudates. Neck: Full range of motion. No meningismus. + Lymphadenopathy. Resp: Clear to auscultation bilaterally Cardio: Regular rate and rhythm, no murmurs Skin: No petechiae or rashes Back: No midline or flank tenderness Ext: No cyanosis, or edema Neur: Awake and alert Psych: Normal Mood and Affect Results 24 hrs Laboratory Tests Test 10/02/18 02:13 POC Beta HCG, Qualitative NEGATIVE Current Medications Medications Dose Sig/Stacie Start Time Status Last (Trade) Ordered Route PRN Stop Time Admin Dose Reason Admin Ketorolac 15 mg ONCE STAT 10/02/18 DC 10/02/18 Tromethamine IM 01:57 02:19 (Toradol) 10/02/18 01:58 Ondansetron 4 mg ONCE STAT 10/02/18 DC 10/02/18 HCl (Zofran ODT 02:22 02:24 Odt) 10/02/18 02:23 Procedures/MDM ED COURSE: The patient was given IM Toradol The medication was well tolerated and the patient had market improvement in symptoms. The patient remained stable throughout ED course. MEDICAL DECISION MAKIN-year-old female presents with sore throat and cough. She is afebrile here. Vital signs are normal. No hypoxia. ENT exam essentially unremarkable. I believe patient's back pain is musculoskeletal in origin and related to her cough. I have prescribed her Promethazine DM to help with this. Recommend she continue with the medications that were prescribed to her by primary care provider. I have low suspicion for pneumonia, strep pharyngitis or other serious bacterial disease. Strict return precautions were discussed. PRESCRIPTIONS: Promethazine DM SPECIALIST FOLLOW UP RECOMMENDED: None Patient has been advised to follow up with primary care in 1-2 days. Departure Diagnosis: Primary Impression: Cough Condition: Stable Patient Instructions: Nasal Allergies: Related Problems, Cough, Chronic, Uncertain Cause, (Adult) Referrals: DOCTOR,NOT ON STAFF (PCP) Additional Instructions: Drink lots of water, and take the medications are prescribed to you by your regular doctor. I am also prescribing you cough medication which can take to help you sleep. Paciente aconseja volver a Departamento de urgencias inmediatamente para sntomas nuevos o que empeoran . Paciente aconseja posteriores con el PCP en 1-2 gallagher. Si el paciente no tiene ninguna de atencin primaria pueden seguir con [place] [facility] [address] [place] [address] o LAC + [address] [address] KADY VAZQUEZ PA-C October 02, 2018 07:59
== END 2018-10-02 03:13 | disposition home or self-care (01) ==
LOC: FTE 23:12
DX: J02.9 Acute pharyngitis, unspecified (principal)
CPT/HCPCS: 81025; J1885; Z7610; 96372

== ENCOUNTER 2019-02-04 05:22 | Emergency (ER) | payer OTHER ==
[~2019-02-04] VITALS: Ht 162.6 cm; Wt 71.8 kg
[~2019-02-04 05:22] MED LIST changes: +CETI10TA19 ORAL; +D-ME473S2 PO; +FLUT16SP17 NASAL; +PANT40TA3 PO; +SUCR1TAB56 PO
[2019-02-04 05:30] VITALS: BP 135/65; PULSE 80; RESP 20; Ht 162.6 cm; Wt 71.8 kg
[2019-02-04] MEDS ORDERED: LIDOCAINE/MYLANTA 40 ML BTL PO ONE (08:00)
[2019-02-04] MEDS ORDERED: PANTOPRAZOLE (EC) 40 MG TAB PO ONE (08:00)
== END 2019-02-04 09:21 | disposition home or self-care (01) ==
LOC: FTE 05:22
DX: K21.0 Gastro-esophageal reflux disease with esophagitis (principal)
CPT/HCPCS: 71045; 93005; Z7502; Z7610